=== PATIENT | male | born 1955 | race Caucasian/White ===

== ENCOUNTER 2018-03-30 08:15 | Inpatient (IN) | payer BC ==
[2018-03-30] MEDS ORDERED: Nitroglycerin 2% Ointment 1 INCH/1 GM Packet ONE ×2 (08:34→08:35)
[2018-03-30 08:39] LABS: #Lymphocytes 0.5 thou/uL (1.20-3.40); #Monocytes 0.5 thou/uL (0.11-0.59); #Neutrophils 12.8 thou/uL (1.40-6.50); %Basophils 0.1 % (0.0-1.0); %Lymphocytes 3.4 % (21.0-51.0); %Monocytes 3.5 % (0.0-10.0); %Neutrophils 92.9 % (42.0-75.0); Hemoglobin 14.3 g/dL (14.0-18.0); Mean Corpuscular HGB CONC 34.4 g/dL (32.0-36.0); Mean Corpuscular Hemoglobin 30.6 pg (27.0-31.0); Mean Corpuscular Volume 88.9 fL (78.0-98.0); Mean Platelet Volume 8.7 fL (7.4-10.4); Platelet Count 244 thou/uL (130-400); RBC Distribution Width 11.7 % (11.5-14.5); Red Blood Cell (RBC) Count 4.68 mill/uL (4.70-6.10); White Blood Cell (WBC) Count 13.8 thou/uL (4.8-10.8)
[2018-03-30 08:50] LABS: ALT (SGPT) 57 U/L (8-55); AST (SGOT) 37 U/L (5-34); Albumin 4.6 g/dL (3.4-4.8); Alkaline Phosphatase 104 U/L (40-150); Anion Gap 17 mmol/L (10-20); BUN (Urea Nitrogen) 21 mg/dL (8.4-25.7); Bilirubin, Total 0.6 mg/dL (0.2-1.2); Calc. Creatinine Clearance 0 mL/min (70-130); Calcium 10.3 mg/dL (7.8-10.44); Carbon Dioxide 20 mmol/L (23-31); Chloride 108 mmol/L (98-107); Estimated GFR-MDRD 61; Globulin 2.8 g/dL (2.4-3.5); Glucose 139 mg/dL (80-115); Lipase 28 U/L (8-78); Protein, Total 7.4 g/dL (5.8-8.1); Sodium 141 mmol/L (136-145)
[2018-03-30 08:53] LABS: CKMB 1.3 ng/mL (0-6.6); Troponin I 0.035 ng/mL (< 0.028)
--- NOTE | 2018-03-30 09:08 | RAD ---
PORTABLE CHEST 1 VIEW: DATE: 03/30/18. TIME: 8:50 p.m. HISTORY: Chest pain. FINDINGS: The heart size is normal. The lungs are expanded without lobar consolidation, pneumothoraces, or ple ural effusions. IMPRESSION: No radiographic evidence of acute cardiopulmonary process. POS: OFF
[2018-03-30] MEDS: Nitroglycerin 2% Ointment 1 INCH/1 GM Packet TOP SCH ×2 (12:50→17:52)
[2018-03-30] MEDS ORDERED: Communication Order-Pharmacy FS SCH (13:00)
[2018-03-30] MEDS ORDERED: Heparin 1000 UNIT/NS 500ML(OR) 500 ML ONE ×2 (13:08)
[2018-03-30] MEDS ORDERED: Verapamil 5 MG/2 ML VIAL ONE (13:20)
[2018-03-30] MEDS ORDERED: Heparin 10,000 UNITS/1 ML VIAL ONE (13:20)
[2018-03-30] MEDS ORDERED: Nitroglycerin 100MG/250ML BOT 250 ML ONE (13:20)
[2018-03-30] MEDS ORDERED: Iopamidol 370 76% 50 ML VIAL FS ONE (13:23)
[2018-03-30] MEDS ORDERED: Iopamidol 370 76% 100 ML VIAL ONE (13:23)
--- NOTE | 2018-03-30 13:31 | CON-2 ---
DATE OF CONSULTATION: 03/30/2018 CHIEF COMPLAINT: Chest pain. HISTORY OF PRESENT ILLNESS: A 62-year-old male presents after a 4-day history of intermittent chest pain. He reports that the chest pain has occurred when he was exerting himself and relieved with rest. This morning around 7 a.m., he got up and went to get his mail that is approximately 50 feet from his front door and the pain occurred at that time. He went to sit down in his house to have some of the pain alleviate; however, the pain did not and he went to the emergency room. Upon admission to the emergency room, he was given nitro and symptoms alleviated. Patient denies any shortness of breath, nausea, vomiting, diarrhea or diaphoresis during this time. The patient has no other complaints at this time. ALLERGIES: PENICILLIN. MEDICATIONS: Atorvastatin 20 mg, Wellbutrin 150 mg b.i.d., allopurinol 300 mg, losartan/hydrochlorothiazide 100 mg/25 mg, omeprazole 40 mg, fish oil 1000 mg daily, Zyrtec 10 mg p.r.n., Claritin 10 mg p.r.n. PAST MEDICAL HISTORY: Hypertension, hyperlipidemia, gout and chronic sinusitis. PAST SURGICAL HISTORY: Sinus surgeries x2, cataract surgery, orthopedic surgery to his right knee. SOCIAL HISTORY: The patient drinks socially with liquor vodka of choice 2-3 times a week. He denies any drug use. He denies any smoking history. REVIEW OF SYSTEMS: A 12 point review of systems was completed and was otherwise negative unless stated above in the HPI. PHYSICAL EXAMINATION: CONSTITUTIONAL: The patient is a male, appropriate for age, in no acute distress. VITAL SIGNS: BP 123/81, pulse 96, respirations are 19, temperature is 97.8, oxygen saturation 96% on room air. HEAD: Atraumatic, normocephalic. HEENT: Trachea is midline. NECK: No JVD present. LUNGS: Clear to auscultation bilaterally. No wheezing. CARDIOVASCULAR: Regular rate and rhythm. No murmurs. ABDOMEN: Soft, nontender, nondistended. EXTREMITIES: No cyanosis or edema. Peripheral pulses are equal and full bilaterally. NEUROLOGIC: GCS is 15. No focal neurologic deficits. LABORATORY DATA: white blood cell count of 13.8, hemoglobin of 14.3, hematocrit 41.6, platelet count of 244, D-dimer of less than 0.27 and sodium 141 , potassium 4.0, chloride 108, carbon dioxide 20, BUN 21, creatinine 1.20, glucose 139, AST was 37, ALT 57. Troponin I of 0.035 with CK-MB of 1.3. EKG showed normal sinus rhythm, rate of 100, normal axis, no ST segment changes , no T-wave changes. RADIOGRAPHIC EVIDENCE: Chest x-ray showed no radiographic evidence of acute cardiopulmonary process. ASSESSMENT AND PLAN: 1. Unstable angina. We will opt for an urgent cardiac catheterization to evaluate the coronary arteries. Risks and benefits of the procedure were discussed with the patient fully. 2. Elevated troponin. Same as above. 3. Hypertension. We will continue his home medications and monitor for proper better blood pressure control with increase in regimen as needed. 4. Hyperlipidemia. We will continue atorvastatin going forward with a possible increase in medication. Last lipid panel was done in October 2017 and showed to be under good control. 5. Leukocytosis, likely secondary to above versus his recent sinus infection. We will monitor that with CBC and defer treatment to the primary team. 6. Hyperglycemia, patient has had elevated blood glucose levels from as far back as 2012. No self reported history of DM. Will defer treatment to primary team, but may need to initiate DM management. DISPOSITION: Stable. We will await results of the cardiac catheterization and make treatment changes as appropriate once those results are known. This patient was seen and evaluated with Dr. Yovany Villegas, Cardiology attending, who is in agreement with our plan. [facility]
[2018-03-30 13:33] LABS: Troponin I 0.028 ng/mL (< 0.028)
[2018-03-30 13:52] VITALS: BMI 27.0
--- NOTE | 2018-03-30 14:11 | HP ---
HISTORY OF PRESENT ILLNESS: This is a 62-year-old white male with history of hypertension, hyperlipi demia, who presents to the ER with chest pain. The patient states that he has had occasional bouts o f chest pain. However, over the past 3 days the chest pain has become worse. His chest pain is most ly associated with exertion. This morning he was walking to the mailbox, a very short distance and d eveloped acute onset of chest pain radiating down both arms. There was no associated nausea, vomitin g or diaphoresis. His blood pressure was also noted to be about 175/95. He was seen in the ER and n itroglycerin was given as well as aspirin with immediate relief of his chest pain. His EKG, chest x- ray and a D-dimer were unremarkable, but his troponin level was indeterminate. PAST MEDICAL HISTORY: Hypertension, hyperlipidemia, gout, reflux, migraines. ALLERGIES: Chronic sinusitis. PAST SURGICAL HISTORY: Include T&A, vasectomy, nasal polyps, sinus surgery, eye surgery, right hand surgery, colonoscopy. FAMILY HISTORY: Father with heart disease and lung cancer, mother with arthritis. Daugh ter with bipolar disorder. Father with depression. Maternal grandmother with coronary artery diseas e. SOCIAL HISTORY: He is . He has 1 daughter who is a nationally ranked [employer] competitive [employer] shooter. The patient does not smoke, drinks occasional alcohol. REVIEW OF SYSTEMS: As above. ALLERGIES: PENICILLIN. MEDICATIONS: Lipitor 20 mg daily, losartan/HCTZ 100/25 q.a.m., allopurinol 300 daily, omeprazole 40 mg daily, Wellbutrin-SR 150 b.i.d. PHYSICAL EXAMINATION: VITAL SIGNS: Stable, afebrile. GENERAL: In no acute distress at this time. No chest pain. HEENT: Clear. HEART: Regular rate and rhythm. LUNGS: Clear. ABDOMEN: Soft. EXTREMITIES: No cyanosis, edema. LABORATORY: White count 13.8, H&H 14 and 41. Electrolytes normal. Creatinine 1.2, BUN 21, glucose 139. Liver functions slightly elevated, troponin I 0.035. ASSESSMENT: 1. Chest pain, rule out myocardial infarction with an indeterminate troponin level. The patient's h istory is suspicious for coronary artery disease. He has had a long history of hypertension, hyperli pidemia, controlled. 2. Hypertension. 3. Hyperlipidemia. PLAN: 1. Dr. Villegas is present. She plans to take the patient immediately to the [facility]. 2. We will continue to follow.
[2018-03-30] MEDS ORDERED: TICAGRELOR 90 MG TABLET ONE ×2 (14:17)
--- NOTE | 2018-03-30 14:51 | CON ---
DATE OF CONSULTATION: 03/30/2018 CARDIOLOGY CONSULTATION INDICATION FOR CONSULTATION: A 62-year-old patient with chest pain. HISTORY OF PRESENT ILLNESS: This is a very pleasant 62-year-old gentleman who has no previous cardiac history, but does have a history of hypertension and hyperlipidemia, and may be somewhat noncompliant with diet and paying attention to his cholesterol and hypertension. He has noted for the last couple weeks he started noticing chest pain, which he describes as being pressure, occasionally radiating to both arms. Now he has noticed this becoming more frequent and increased in intensity with minimal exertion. He was walking to his mailbox this morning and noticed that he developed severe discomfort and he went home and the pain did not resolve after he sat down and usually the last couple of times when this has been occurring, he can relax and the pain simply goes away. His EKG did not show any significant changes that would indicate ischemia; however, his cardiac enzymes did show a troponin I of 0.035. His renal function was normal. His hemoglobin was 14.3 and his creatinine is stable at 1.2. At this time, after discussion with the patient, I would label this as somewhat unstable angina in this gentleman who has otherwise been healthy and now has developed chest discomfort with minimal exertion. We will plan for a cardiac catheterization on this gentleman relatively urgently here to determine whether or not he has any significant disease prior to him having further elevation of the cardiac enzymes or further damage to the myocardium. There is no other indication in this patient that I can see that he would have elevated troponins. For the remainder of his past medical history, social history, family history and review of systems, please refer to the notes dictated by the Family Practice resident who has also seen the patient with me and we have discussed this case. PHYSICAL EXAMINATION: GENERAL: Reveals, well-developed, well-nourished gentleman in no acute distress. He is alert and oriented. VITAL SIGNS: Stable at this time. HEENT: Shows the head to be normocephalic and atraumatic. Carotid pulses are present. There were no bruits. CHEST: Clear to auscultation without rales, rhonchi or wheezing. CARDIOVASCULAR: Exam reveals a regular rate and rhythm. Normal S1, S2. There is no S3, S4. There were no significant murmurs, heaves, thrills, bruits or rubs. ABDOMEN: Soft and nontender with positive bowel sounds. No organomegaly or masses noted. Femoral pulses are present. EXTREMITIES: Show no clubbing, cyanosis or edema. Pedal pulses are present. NEUROLOGIC: The patient appears to be fully intact. SKIN: Warm and dry. IMPRESSION: 1. Unstable angina. I discussed the case with the resident as well as the primary care physician, his attending, which is Dr. Martinez and we will plan for cardiac catheterization as soon as the patient can be taken down to the cardiac quality control lab technician. This will give us a true diagnosis of whether or not he is having coronary artery disease or unstable anginal symptoms. If not, then he will need to be seen by the cylinder press feeder or increase his GI medications as there is always the possibility of esophageal spasms, but this would not account for the abnormal cardiac enzymes. 2. History of hypercholesterolemia. We will continue his statin medications. He will need to follow with his primary care physician to continue to monitor his cholesterol level. He has been on atorvastatin in the past for his home medication. 3. Hypertension. This will also need to be kept under observation and will need to be kept stable. Further recommendation will depend after we reviewed the cardiac catheterization and the films. I have explained the procedure and the risks to him to include bleeding, infection, possibility of myocardial infarction, cerebrovascular accident, renal insufficiency, allergic contrast reaction and the possibility of and he understands and agrees to proceed. We will plan for that within the next hour. ZOHAIB
[2018-03-30] MEDS ORDERED: Milk Of Magnesia 30 ML UDCUP PO PRN (15:51)
[2018-03-30] MEDS ORDERED: Nitroglycerin 0.4 MG TAB (25 Tab Bottle) SL PRN (15:51)
[2018-03-30] MEDS ORDERED: Acetaminophen/Codeine 30-300mg Tablet PO PRN (15:51)
[2018-03-30 18:43] LABS: Troponin I 0.047 ng/mL (< 0.028)
[2018-03-30] MEDS: TICAGRELOR 90 MG TABLET PO SCH (20:18)
[2018-03-30] MEDS: Carvedilol 3.125 MG TAB PO SCH (20:18)
[2018-03-30] MEDS ORDERED: Atorvastatin Calcium 20 MG TAB PO SCH (21:00)
[2018-03-31 03:53] VITALS: TEMP 98.4
[2018-03-31 06:00] LABS: ALT (SGPT) 41 U/L (8-55); AST (SGOT) 27 U/L (5-34); Albumin 3.9 g/dL (3.4-4.8); Alkaline Phosphatase 78 U/L (40-150); Anion Gap 16 mmol/L (10-20); BUN (Urea Nitrogen) 20 mg/dL (8.4-25.7); Bilirubin, Total 0.7 mg/dL (0.2-1.2); Calc. Creatinine Clearance 102 mL/min (70-130); Calcium 9.2 mg/dL (7.8-10.44); Carbon Dioxide 18 mmol/L (23-31); Chloride 109 mmol/L (98-107); Estimated GFR-MDRD 77; Globulin 2.6 g/dL (2.4-3.5); Glucose 109 mg/dL (80-115); Protein, Total 6.5 g/dL (5.8-8.1); Sodium 139 mmol/L (136-145)
[2018-03-31 06:30] LABS: #Lymphocytes 0.7 thou/uL (1.20-3.40); #Monocytes 0.6 thou/uL (0.11-0.59); #Neutrophils 7.6 thou/uL (1.40-6.50); %Basophils 0.3 % (0.0-1.0); %Eosinophils 0.4 % (0.0-10.0); %Lymphocytes 8.2 % (21.0-51.0); %Monocytes 6.5 % (0.0-10.0); %Neutrophils 84.6 % (42.0-75.0); Hemoglobin 12.8 g/dL (14.0-18.0); Mean Corpuscular HGB CONC 35.3 g/dL (32.0-36.0); Mean Corpuscular Hemoglobin 33.1 pg (27.0-31.0); Mean Corpuscular Volume 93.6 fL (78.0-98.0); Mean Platelet Volume 8.3 fL (7.4-10.4); Platelet Count 198 thou/uL (130-400); RBC Distribution Width 11.9 % (11.5-14.5); Red Blood Cell (RBC) Count 3.86 mill/uL (4.70-6.10)
[2018-03-31] MEDS ORDERED: Losartan/Hydrochlorothiazide 100 mg/25 mg Tablet PO SCH (09:00)
[2018-03-31] MEDS ORDERED: Allopurinol 300 MG TAB PO SCH (09:00)
[2018-03-31] MEDS: TICAGRELOR 90 MG TABLET PO SCH (09:01)
--- NOTE | 2018-03-31 09:37 | PDOC.CTH ---
<Adenike Dove - Last Filed: 03/31/18 09:34> Cardiology Progress Note - Subjective The pt seen and examined. No overnight events. No cardiac complaints. He has been up to bathroom several times already without any cardiac complaints. - Objective Vital Signs Temp Pulse Resp BP BP Pulse Ox 03/31/18 03:51 98.4 F 76 18 122/66 99 03/30/18 23:47 98.2 F 83 18 140/72 97 Admit Weight 205 lb 1 oz Weight 205 lb 6.4 oz 03/30/18 03/31/18 04/01/18 06:59 06:59 06:59 Intake Total 710 Balance 710 - Physical Examination General/Neuro: alert & oriented x3 Neck: no JVD present Lungs: CTA Heart: RRR Abdomen: soft Extremities: other: (No edema) - Telemetry Telemetry Rhythm: SR - Labs Result Diagrams: 03/31/18 04:29 03/31/18 04:29 Troponin/CKMB CK-MB (CK-2) 1.3 ng/mL (0-6.6) 03/30/18 08:26 Troponin I 0.047 ng/mL (< 0.028) H 03/30/18 18:10 - Assessment/Plan 1. CAD with s/p PCI with Drug eluting stent to Prox LAD and mild stenosis in prox Lt Cx on 03/30/18 - stable. On Coreg 3.125mg BID, Brilinta 90mg BID, ASA 81mg qd, Losartan HCTZ, and Lipitor. Plan to have another Trop level checked by Dr Martinez? 2. HTN - stable with current meds 3. Hyperlipidemia - on Statin 4. Gout - stable MAR reviewed * From Cardiac standpoint, the pt is stable to d/c home. The pt will f/u with Dr Villegas' office within 4 wks. The pt will have Trop check by Dr Martinez? Review of Systems - Review of Systems Constitutional: reports: no symptoms reported EENTM: reports: no symptoms reported Respiratory: reports: no symptoms reported Cardiac (ROS): reports: no symptoms reported ABD/GI: reports: no symptoms reported : reports: no symptoms reported Musculoskeletal: reports: no symptoms reported Skin: reports: no symptoms reported Neurological: reports: no symptoms reported Endocrine: reports: no symptoms reported <Danielle Villegas - Last Filed: 03/31/18 13:52> Cardiology Progress Note - Objective Vital Signs Temp Pulse Resp BP BP Pulse Ox 03/31/18 08:08 97.8 F 68 16 139/86 96 03/31/18 03:51 98.4 F 76 18 122/66 99 Admit Weight 205 lb 1 oz Weight 205 lb 6.4 oz 03/30/18 03/31/18 04/01/18 06:59 06:59 06:59 Intake Total 710 Balance 710 - Labs Result Diagrams: 03/31/18 04:29 03/31/18 04:29 Troponin/CKMB CK-MB (CK-2) 1.3 ng/mL (0-6.6) 03/30/18 08:26 Troponin I 0.047 ng/mL (< 0.028) H 03/30/18 18:10 - Assessment/Plan Pt. seen and eval. doing well. No chest pain. I agree with the A/P by the JUNIOR DATA ANALYST. He can f/u with me in the office in a month.
[2018-03-31] MEDS: Carvedilol 3.125 MG TAB PO SCH (09:42)
[2018-03-31 10:18] VITALS: BP 139/86
--- NOTE | 2018-03-31 10:24 | DIS ---
DATE OF DISCHARGE: 03/31/2018 DISCHARGE DIAGNOSES: 1. Coronary artery disease, 99% lesion of the proximal left anterior descending. 2. Chest pain. 3. Ejection fraction 70%. 4. Hypertension. 5. Hyperlipidemia. DISCHARGE MEDICATIONS: Bupropion 150 one p.o. b.i.d., Lipitor 20 mg daily, Brilinta 90 p.o. b.i.d., losartan 100/25 mg daily, Coreg 3.125 p.o. b.i.d., aspirin 81 mg daily, allopurinol 300 p.o. daily. BRIEF HISTORY: This is a 62-year-old white male, who presents with a 3-4-day history of intermittent worsening substernal chest pain, radiating down both upper extremities. The morning of admission, t he patient was walking a short distance to the mailbox and had sudden onset of chest pain. He took a rest and his chest pain resolved. He then presented to the emergency room where he was given nitrog lycerin and he had immediate relief. He took aspirin that morning also. Dr. Villegas was consulted. His troponin level was 0.035, 0.028, 0.030, and 0.047. CBC and CMP were bot h unremarkable. The patient has somewhat history of noncompliance with diet and medications. He now understands the importance of aggressive treatment. Our goal will most likely be an LDL less than 7 0. His Lipitor will definitely probably had to be titrated upward. The patient underwent cardiac ca theterization and a 99% lesion of the proximal LAD was noted with ejection fraction of 70%. A stent was placed. The patient was started on Brilinta. He has been chest pain free. He most likely will go home today and follow up in the office in 1 week with myself and with Dr. Villegas.
--- NOTE | 2018-03-31 12:15 | EKG ---
Test Reason : Blood Pressure : / mmHG Vent. Rate : 090 BPM Atrial Rate : 090 BPM P-R Int : 168 ms QRS Dur : 094 ms QT Int : 388 ms P-R-T Axes : 049 028 028 degrees QTc Int : 474 ms Normal sinus rhythm Normal ECG No previous ECGs available Confirmed by REN MIRANDA ([id number]) on 03/31/2018 12:15:05 PM Referred By: JENNIFER Confirmed By:REN MIRANDA
--- NOTE | 2018-03-31 12:17 | EKG ---
Test Reason : Blood Pressure : / mmHG Vent. Rate : 072 BPM Atrial Rate : 072 BPM P-R Int : 172 ms QRS Dur : 094 ms QT Int : 396 ms P-R-T Axes : 056 035 042 degrees QTc Int : 433 ms Normal sinus rhythm Normal ECG No previous ECGs available Confirmed by REN MIRANDA ([id number]) on 03/31/2018 12:17:33 PM Referred By: KENNY Confirmed By:REN MIRANDA
== END 2018-03-31 12:23 | disposition home or self-care (01) | DRG 247 ==
LOC: SCSER 08:15 → OBSVTOIN 09:38 → 2NO 09:38
PROVIDERS: ADMIT Family Medicine; ATTEND Family Medicine
PROC: 4A023N7 Measurement of Cardiac Sampling and Pressure, Left Heart, Percutaneous Approach (ICD-10-PCS; principal; 2018-03-30)
PROC: 027034Z Dilation of Coronary Artery, One Artery with Drug-eluting Intraluminal Device, Percutaneous Approach (ICD-10-PCS; 2018-03-30)
PROC: B2111ZZ Fluoroscopy of Multiple Coronary Arteries using Low Osmolar Contrast (ICD-10-PCS; 2018-03-30)
PROC: B2151ZZ Fluoroscopy of Left Heart using Low Osmolar Contrast (ICD-10-PCS; 2018-03-30)
DX: I25.110 Atherosclerotic heart disease of native coronary artery with unstable angina pectoris (principal); I10 Essential (primary) hypertension; E78.5 Hyperlipidemia, unspecified; K21.9 Gastro-esophageal reflux disease without esophagitis; Z88.0 Allergy status to penicillin; J32.8 Other chronic sinusitis; E78.00 Pure hypercholesterolemia, unspecified; R73.9 Hyperglycemia, unspecified; Z79.82 Long term (current) use of aspirin; Z79.01 Long term (current) use of anticoagulants; M10.9 Gout, unspecified
CPT/HCPCS: 36415; 71045; 80053; 82553; 83690; 84484; 85025; 85379; 92928; 93005; 93010; 93458; 94760; C1769; C1874; C1887; C9600; J1644; J2270

== ENCOUNTER 2019-05-10 10:37 | Outpatient (CLI) | payer BC ==
--- NOTE | 2019-05-10 13:08 | MRI ---
MRI CERVICAL SPINE WITHOUT CONTRAST: INDICATION: Cervical radiculopathy. COMPARISON: Comparison is made to MRI of cervical spine from 12/28/2017. FINDINGS: Vertebral bodies maintain normal height and alignment. Disk spaces are preserved. Vertebral body si gnal is normal. Minimal disk bulge and spondylosis at C2-3 and C3-4. Anterior subarachnoid space is preserved at these levels. No central canal or foraminal stenosis. At C4-5, broad-based disk bulge and spondylosis flattens the thecal sac and effaces the anterior suba rachnoid space. No cord impingement. No definite foraminal stenosis. At C5-6, posterior disk bulge and spondylosis mildly efface the anterior subarachnoid space. No cord impingement. No central canal or foraminal stenosis. At C6-7, there is a focal foraminal disk protrusion to the right extending into the right foramina. This was described on the prior exam and does not appear significantly changed. This would displace t he exiting right C7 nerve root. Cervical cord signal is normal. No other findings or significant change. IMPRESSION: Right foraminal disk protrusion at C6-C7 is again noted. Not significantly changed from exam of 12/28. POS: [facility]
== END 2019-05-10 10:38 | disposition home or self-care (01) ==
LOC: TBSIIMAG 10:37
PROVIDERS: ATTEND Neurological Surgery
DX: M50.10 Cervical disc disorder with radiculopathy, unspecified cervical region (principal); M50.123 Cervical disc disorder at C6-C7 level with radiculopathy
CPT/HCPCS: 72141

== ENCOUNTER 2019-05-28 08:48 | Observation (INO) | payer BC ==
[2019-05-25 11:28] VITALS: BMI 27.0
[2019-05-28] MEDS ORDERED: Clindamycin/D5W 900 mg/50 ml Premix Bag ONE (09:39)
[2019-05-28 10:13] LABS: #Eosinphils 0.3 thou/uL (0.0-0.7); #Monocytes 0.4 thou/uL (0.11-0.59); #Neutrophils 2.6 thou/uL (1.40-6.50); %Basophils 0.3 % (0.0-1.0); %Lymphocytes 23.8 % (21.0-51.0); Hemoglobin 13.1 g/dL (14.0-18.0); Mean Corpuscular HGB CONC 33.2 g/dL (32.0-36.0); Mean Corpuscular Hemoglobin 31.6 pg (27.0-31.0); Mean Corpuscular Volume 95.4 fL (78.0-98.0); Mean Platelet Volume 7.6 fL (7.4-10.4); Platelet Count 206 thou/uL (130-400); RBC Distribution Width 12.5 % (11.5-14.5); Red Blood Cell (RBC) Count 4.14 mill/uL (4.70-6.10); White Blood Cell (WBC) Count 4.3 thou/uL (4.8-10.8)
[2019-05-28 10:25] LABS: Anion Gap 11 mmol/L (10-20); BUN (Urea Nitrogen) 19 mg/dL (8.4-25.7); Calc. Creatinine Clearance 82 mL/min (70-130); Calcium 9.9 mg/dL (7.8-10.44); Carbon Dioxide 25 mmol/L (23-31); Chloride 107 mmol/L (98-107); Estimated GFR-MDRD 61; Glucose 110 mg/dL (80-115); Potassium 4.2 mmol/L (3.5-5.1); Sodium 139 mmol/L (136-145)
[2019-05-28] MEDS ORDERED: Levofloxacin 500 mg/D5W 100 ml Premix Bag ONE (10:25)
[2019-05-28] MEDS ORDERED: Sodium Chloride 0.9% 10 ML ONE (10:47)
[2019-05-28] MEDS ORDERED: Fentanyl 100 MCG/2 ML VIAL ONE (11:34)
[2019-05-28] MEDS ORDERED: HYDROcodone/Acetaminophen 5/325 mg Tablet ONE ×2 (14:40→21:39)
[2019-05-28] MEDS ORDERED: PROPOFOL 200 MG/20 ML VIAL ONE (15:45)
[2019-05-28] MEDS ORDERED: Rocuronium Bromide 10 MG/ML (10ML VIAL) ONE (15:45)
[2019-05-28] MEDS ORDERED: Lidocaine 1% PF 5 ML VIAL ONE (15:45)
[2019-05-28] MEDS ORDERED: Glycopyrrolate 0.2 MG/ML 5 ML SYRINGE ONE (15:45)
[2019-05-28] MEDS ORDERED: Dexamethasone 20 MG/5 ML VIAL ONE (15:45)
[2019-05-28] MEDS ORDERED: PHENYLEPHRINE-NS 100 MCG/ML 10 ML SYRINGE ONE (15:45)
[2019-05-28] MEDS ORDERED: Ondansetron PF 4 MG/2 ML Vial ONE (15:45)
[2019-05-28] MEDS ORDERED: Tamsulosin HCl 0.4 MG CAP ONE (17:12)
--- NOTE | 2019-05-28 18:10 | OP ---
DATE OF PROCEDURE: 05/28/2019 EMERGENCY DEPARTMENT RN: Gregg Muhammad PA-C PROCEDURES PERFORMED: Anterior cervical diskectomy C6-C7, interbody arthrodesis, intervertebral biomechanical device, local morselized autograft, demineralized bone matrix, anterior titanium instrumentation C6-C7. DESCRIPTION OF PROCEDURE: The patient was brought to the operating room and intubated. He was positioned supine with head in modest extension on gel-filled donut. Incision was made in the right precervical area and dissected medial to the sternocleidomastoid muscle, identified the anterior cervical spinal, and the level was confirmed by x-ray. We placed distraction across C6-C7. Using the operating microscope and microdissection techniques, we completely removed the intervertebral disk and decompressing the spinal cord and right C7 nerve root. The bony endplates were then decorticated for the purpose of arthrodesis and appropriate-sized intervertebral biomechanical PEEK device was brought into the field, filled with demineralized bone matrix and local morselized autograft, and tapped in place securely at C6-C7. Next, an anterior plate was brought into the field and secured to C6 and C7 using two 14-mm screws at each level. The wound was then extensively irrigated. MAC hemostasis was secured, and the wound was closed in anatomic layers. Job ID: [id number]
[2019-05-28] MEDS ORDERED: tiZANidine HCl 4 MG TAB ONE (18:46)
[2019-05-28] MEDS ORDERED: Morphine 2 MG/ML SYRINGE SLOW IVP PRN (23:20)
[2019-05-28] MEDS ORDERED: tiZANidine HCl 4 MG TAB PO PRN (23:20)
[2019-05-28] MEDS ORDERED: traMADol HCl 50 MG TAB PO PRN ×2 (23:20)
[2019-05-28] MEDS ORDERED: Ondansetron PF 4 MG/2 ML Vial IVP PRN (23:20)
[2019-05-28] MEDS ORDERED: Milk Of Magnesia 30 ML UDCUP PO PRN (23:20)
[2019-05-28] MEDS ORDERED: HYDROcodone/Acetaminophen 10/325 mg Tablet PO PRN ×2 (23:20)
[2019-05-28] MEDS ORDERED: diphenhydrAMINE 50 MG/ML VIAL IVP PRN (23:20)
[2019-05-28] MEDS ORDERED: diphenhydrAMINE 25 MG CAP PO PRN (23:20)
[2019-05-28] MEDS ORDERED: Mag-Al 1200 mg/1200 mg/30 ML UDCUP PO PRN (23:20)
[2019-05-28] MEDS: Sodium Chloride 0.9% 1,000 ML IV SCH (23:42)
[2019-05-29] MEDS: Sodium Chloride 0.9% 1,000 ML IV SCH (05:52)
[2019-05-29] MEDS ORDERED: Tamsulosin HCl 0.4 MG CAP PO SCH ×2 (06:00→09:00)
[2019-05-29 06:03] VITALS: TEMP 97.9
[2019-05-29 08:43] VITALS: BP 140/71
[2019-05-29] MEDS ORDERED: Allopurinol 300 MG TAB PO SCH (09:00)
[2019-05-29] MEDS ORDERED: Carvedilol 3.125 MG TAB PO SCH (09:00)
[2019-05-29] MEDS ORDERED: Losartan/Hydrochlorothiazide 100 mg/25 mg Tablet PO SCH (09:00)
[2019-05-29] MEDS ORDERED: Bupropion 150 MG SR TAB PO SCH (09:00)
--- NOTE | 2019-05-29 16:30 | DIS ---
DATE OF ADMISSION: 05/28/2019 DATE OF DISCHARGE: 05/29/2019 The patient is a 63-year-old male, recently seen in our office for right-sided cervical radiculopathy, who underwent C6 through C7 ACDF on 05/28/2019. Following the surgery, he was transitioned to Day Stay, where his pain was well controlled with p.o. medications, he was tolerating a regular diet, however, he had significant issues with urinary retention requiring I and O cath and was therefore transitioned for observation admission. He was monitored overnight and had improvement in his urination and is now urinating without difficulty. His strength is otherwise 5/5 throughout and he is walking in the halls without difficulty. He reports resolution of his right-sided cervical radiculopathy. We will plan to dismiss the patient to home. I have discussed home care and precautions and we will follow up with the patient in 2 weeks in the office. Job ID: [id number]
[2019-05-29] MEDS ORDERED: Atorvastatin Calcium 20 MG TAB PO SCH (21:00)
[2019-06-11] MEDS ORDERED: Aspirin 81 mg Enteric Coated Tablet PO SCH (09:00)
== END 2019-05-29 11:21 | disposition home or self-care (01) ==
LOC: SDC 08:48 → SURG A 19:51
PROVIDERS: ADMIT Neurological Surgery; ATTEND Neurological Surgery
PROC: 0RG10A0 Fusion of Cervical Vertebral Joint with Interbody Fusion Device, Anterior Approach, Anterior Column, Open Approach (ICD-10-PCS; principal; 2019-05-28)
PROC: 0RT30ZZ Resection of Cervical Vertebral Disc, Open Approach (ICD-10-PCS; 2019-05-28)
DX: M50.123 Cervical disc disorder at C6-C7 level with radiculopathy (principal); M48.02 Spinal stenosis, cervical region; R33.9 Retention of urine, unspecified; I25.10 Atherosclerotic heart disease of native coronary artery without angina pectoris; I10 Essential (primary) hypertension; E78.5 Hyperlipidemia, unspecified; M10.9 Gout, unspecified; K21.9 Gastro-esophageal reflux disease without esophagitis; G43.909 Migraine, unspecified, not intractable, without status migrainosus; Z79.02 Long term (current) use of antithrombotics/antiplatelets; Z79.899 Other long term (current) drug therapy; Z88.0 Allergy status to penicillin; Z95.5 Presence of coronary angioplasty implant and graft
CPT/HCPCS: 36415; 76000; 80048; 85025; C1713; C1776; G0378; J1100; J1956; J2001; J2405; J2704; J3010; J3490

== ENCOUNTER 2019-06-12 15:27 | Outpatient (CLI) | payer BC ==
--- NOTE | 2019-06-12 16:04 | RAD ---
EXAM: XR Cerv Sp Ap Lat STANDARD PROVIDED CLINICAL HISTORY: Follow-up postsurgical changes of the cervical spine. COMPARISON: None FINDINGS: Postsurgical changes related to anterior cervical fusion at the C6-7 level are noted with anterior pl ate and screws transfixing this level. Intradiscal prosthesis is seen at this level. No hardware complication is evident. No fracture or subluxation is seen. There are scattered facet degenerative c hanges noted. The vertebral body heights and remaining intervertebral disc spaces are within normal limits. Prevertebral soft tissues are within normal limits. Vascular calcifications overlie the neck bilaterally. IMPRESSION: Postsurgical changes related to anterior cervical fusion at the C6-7 level. No hardware complication is seen.
== END 2019-06-12 15:28 | disposition home or self-care (01) ==
LOC: TBSIIMAG 15:27
PROVIDERS: ATTEND Neurological Surgery
DX: M54.12 Radiculopathy, cervical region (principal); Z98.1 Arthrodesis status
CPT/HCPCS: 72040

== ENCOUNTER 2019-07-18 15:26 | Outpatient (CLI) | payer BC ==
--- NOTE | 2019-07-18 16:23 | RAD ---
XR Cerv Sp Ap Lat STANDARD History: Cervical pain Comparison: Radiograph June 2019 Findings: Moderate vascular plaque both carotid bulbs and proximal internal carotid arteries. Similar appearance ACDF hardware at C6/C7 without evidence for hardware complication. The visualized upper ribs are intact. Low-grade narrowing of the disc spaces from C3-C6. No significant listhesis. Impression: Unchanged examination. No acute osseous abnormality.
== END 2019-07-18 15:27 | disposition home or self-care (01) ==
LOC: BICRAD 15:26
PROVIDERS: ATTEND Neurological Surgery
DX: M54.2 Cervicalgia (principal)
CPT/HCPCS: 72040

== ENCOUNTER 2019-12-07 06:56 | Outpatient (CLI) | payer BC, OTHER ==
[2019-12-07 12:23] LABS: #Eosinphils 0.3 thou/uL (0.0-0.7); #Lymphocytes 1.1 thou/uL (1.20-3.40); #Monocytes 0.4 thou/uL (0.11-0.59); #Neutrophils 3.2 thou/uL (1.40-6.50); %Basophils 0.4 % (0.0-1.0); %Eosinophils 6.9 % (0.0-10.0); %Lymphocytes 21.4 % (21.0-51.0); %Monocytes 7.9 % (0.0-10.0); %Neutrophils 63.3 % (42.0-75.0); Hemoglobin 13.8 g/dL (14.0-18.0); Mean Corpuscular HGB CONC 33.1 g/dL (32.0-36.0); Mean Corpuscular Hemoglobin 31.6 pg (27.0-31.0); Mean Corpuscular Volume 95.3 fL (78.0-98.0); Platelet Count 263 thou/uL (130-400); RBC Distribution Width 12.8 % (11.5-14.5); Red Blood Cell (RBC) Count 4.36 mill/uL (4.70-6.10)
[2019-12-07 12:39] LABS: Anion Gap 14 mmol/L (10-20); BUN (Urea Nitrogen) 19 mg/dL (8.4-25.7); Calc. Creatinine Clearance 0 mL/min (70-130); Calcium 10.3 mg/dL (7.8-10.44); Carbon Dioxide 30 mmol/L (23-31); Chloride 104 mmol/L (98-107); Estimated GFR-MDRD 61; Glucose 93 mg/dL (80-115); Sodium 144 mmol/L (136-145)
[2019-12-07 13:04] LABS: Bilirubin Negative (Negative); Blood, Urine Negative (Negative); Glucose, Urine (Dipstick) Negative (Negative); Leukocyte Negative (Negative); Nitrite Negative (Negative); Protein, Urine (Dipstick) Negative (Neg-Trace); Urobilinogen 0.2 mg/dL (Less than 2)
[2019-12-07 13:07] LABS: Clarity Clear (Clear)
[2019-12-07 13:11] LABS: Bacteria/HPF None Seen HPF (None Seen); RBC/HPF 0-3 HPF (0-3); Squamous Epithelial None Seen HPF (0-3); WBC/HPF None Seen HPF (0-3)
[2019-12-07 18:22] LABS: SARS-CoV-2 MS2 Positive; SARS-CoV-2 N Gene Negative; SARS-CoV-2 S Gene Negative; SARS-CoV-2 orf1ab Negative
--- NOTE | 2019-12-09 16:36 | EKG ---
Test Reason : PREOP Blood Pressure : / mmHG Vent. Rate : 072 BPM Atrial Rate : 072 BPM P-R Int : 172 ms QRS Dur : 092 ms QT Int : 392 ms P-R-T Axes : 045 025 030 degrees QTc Int : 429 ms Normal sinus rhythm Normal ECG When compared with ECG of 31-MAR-2018 07:16, No significant change was found Confirmed by FOX DOTSON (2) on 12/09/2019 4:36:31 PM Referred By: DEENA Confirmed By:FOX DOTSON
== END 2019-12-07 06:57 | disposition home or self-care (01) ==
LOC: LABBT 06:56
PROVIDERS: ATTEND Orthopaedic Surgery Hand Surgery
DX: Z01.818 Encounter for other preprocedural examination (principal); Z11.59 Encounter for screening for other viral diseases; G56.22 Lesion of ulnar nerve, left upper limb; M72.0 Palmar fascial fibromatosis [Dupuytren]
CPT/HCPCS: 80048; 81001; 85025; 87635; 93005; 93010; U0003

== ENCOUNTER 2019-12-11 05:53 | Day surgery (SDC) | payer BC ==
[2019-12-07 11:23] VITALS: BMI 27.0
[2019-12-11] MEDS ORDERED: Bacitracin Zinc Ointment 30 gm TUBE ONE (06:14)
[2019-12-11] MEDS ORDERED: Bupivacaine PF 0.5% 30 ML VIAL ONE (06:14)
[2019-12-11] MEDS ORDERED: Betamet Acet/Betamet Na Ph 30 MG/5 ML VIAL ONE ×2 (06:39→09:50)
[2019-12-11] MEDS ORDERED: HYDROmorphone 0.5 MG/0.5 ML SYRINGE ONE (06:51)
[2019-12-11] MEDS ORDERED: Fentanyl 100 MCG/2 ML VIAL ONE (06:51)
[2019-12-11] MEDS ORDERED: Vancomycin 1 GM/200 ML BAG ONE (07:03)
[2019-12-11] MEDS ORDERED: Lidocaine 1% PF 5 ML VIAL ONE (11:04)
[2019-12-11] MEDS ORDERED: Dexamethasone 20 MG/5 ML VIAL ONE (11:04)
[2019-12-11] MEDS ORDERED: PROPOFOL 200 MG/20 ML VIAL ONE (11:04)
[2019-12-11] MEDS ORDERED: Ketorolac Tromethamine 30 MG/ML VIAL ONE ×2 (11:04)
[2019-12-11] MEDS ORDERED: Ondansetron PF 4 MG/2 ML Vial ONE (11:04)
--- NOTE | 2019-12-11 14:08 | OP ---
DATE OF PROCEDURE: 12/11/2019 PREOPERATIVE DIAGNOSIS: 1. Left small finger Dupuytren's cord, severe, going from the transverse carpal ligament all the way to the base of the distal phalanx. 2. Left cubital tunnel with severe compression in 2 sites. 3. Olecranon bursa inflammation. POSTOPERATIVE DIAGNOSES: 1. Very thick olecranon bursa. 2. Very tight compression of the ulnar nerve just proximal to the elbow where across the intermuscular septum and in the main cubital tunnel. 3. Left Dupuytren's cord at 4 mm thick in some spots transverse carpal ligament distal edge all the way to the ulnar aspect of the A4 glenda, acting on all 3 joints. PROCEDURE PERFORMED: 1. Digital nerve neuroplasty, ulnar and radial digital nerve, left small finger. 2. Left small finger subpalmar subtotal fasciectomy with Dupuytren's cord excision. 3. Left cubital tunnel release/ulnar nerve neuroplasty at the elbow. 4. Submuscular transposition, ulnar nerve. 5. Left radical olecranon bursectomy. 6. Application of long-arm splint including the digit and the elbow. TOURNIQUET TIME: 90 minutes at 250 mmHg, then deflated for 28 minutes and reinflated for 51 minutes. BLOOD LOSS: Approximately 10 mL. SPECIMENS SENT: Yes, the very dense cord consistent with Dupuytren's contracture and olecranon bursa. DESCRIPTION OF PROCEDURE: After successful general endotracheal anesthesia, the limb was prepped and draped. A block was given preoperatively, and thus, we outlined 2 incision, a zigzag Alicia incision from the DIP joint to the tranverse carpal ligament and we outlined the olecranon incision midline, slightly medialized at the olecranon tip to avoid being on the tip and centered on the olecranon tip. We then injected 20 mL at the proximal incision and 10 mL of 0.5% Marcaine in the distal incision. We exsanguinated the limb, inflated tourniquet to 250 mmHg pressure and then began at the palmar fascia. We exposed the entire palmar fascia using a combination of 11 blade knife, Oldham blade knife, tenotomy scissors. Once we exposed the entire Dupuytren's cord, then we began proximally, identified the ulnar digital nerve all the way from the transverse carpal ligament all the way to the where across over the last 6 mm as the cord became eccentric at the level of the A2 glenda and inserted into the skin and dermis ulnarly. We then followed the radial neurovascular bundle in the same fashion for as far proximal as possible, releasing it until we performed a neuroplasty on both sides and protected neurovascular bundle. We then began on the ulnar side by removing the portion of the cord distal to where the neurovascular bundle crossed superficial to it, until we could slide this under a neurovascular bundle and protected it. This was done. We then released it completely from the A2 glenda, from the sheath itself. We made sure that the radial neurovascular bundle was completely freed at the level of the A2 glenda. Once this was done, we lifted up the mass en bloc. Then, we released it at its transverse carpal ligament edge origin. We placed 3 mL of Celestone along the nerve in the area where there was removed. We released the tourniquet and had hemostasis and we had excellent pink finger with 1-second refill. We obtained hemostasis, closed the incision with interrupted 4-0 nylon and placed a sterile dressing on it to include bacitracin, Adaptic, 4x4, and Kerlix. We now had tourniquet time down 28 minutes and then we were able to re-exsanguinate the limb, inflated the tourniquet to 250 mmHg pressure, began with the olecranon center incision down the midline. We carried the incision through skin and subcutaneous tissue. Then, once it was completely exposed, we created a large flap medially and laterally with dermis, epidermis, and cutaneous nerves involved. We then found the ulnar nerve very proximal in the field and began to release completely with complete neuroplasty. This included releasing the cubital tunnel itself and the fascia between the two heads of the flexor group. Once this was done, the nerve was completely freed. We then dissected along with a vascular bundle. The nerve free enough to be transposed 3 cm anteriorly at the level of the medial epicondyle with the elbow flexed and with the elbow extended 2.5 cm. This included the area of flattening underneath the levelock cubital tunnel and just proximal to interosseous membrane crossed it. Once we had freed the nerve enough to be transposed, we released the interosseous membrane off the medial epicondyle as far proximal as 9 cm. This was discarded. We then made a Z-shaped lengthening of the flexor pronator area with the most proximal end of that being the deep and around the flexor carpi ulnaris heads. Then, we transposed the nerve without undue pressure in 45 degrees of flexion, sutured with a #1 Ethibond, the lengthened edges in a [id number] x5, and then we saw it was a stable nerve transposition without snapping or undue pressure. We released the tourniquet, obtained hemostasis. We then evaluated the distal wound, closed this over the finger with interrupted 4-0 nylon and we then saw that the olecranon bursa was very thick, did a radical olecranon bursectomy, sent as a specimen. We found hemostasis, placed Celestone over the nerve, and then closed the olecranon approach wound in the midline with a running 3-0 Monocryl subcutaneous, deep dermis and epidermis with interrupted 4-0 nylon in simple mattress pattern. This was interrupted. Local had been given. We placed bacitracin, Adaptic, 4x4, Kerlix, and an ABD on this proximal wound, and with the elbow at -30 degrees extension, we placed a long-arm splint, which included neutral extension of interphalangeal joint of the small finger. The patient left the operating room without evidence of anesthetic or operative complication with a long-arm splint and pink digits. Job ID: [id number]
== END 2019-12-11 13:45 | disposition home or self-care (01) ==
LOC: SDC 05:53
PROVIDERS: ATTEND Orthopaedic Surgery Hand Surgery
PROC: 0JNK0ZZ Release Left Hand Subcutaneous Tissue and Fascia, Open Approach (ICD-10-PCS; principal; 2019-12-11)
PROC: 0MB40ZZ Excision of Left Elbow Bursa and Ligament, Open Approach (ICD-10-PCS; principal; 2019-12-11)
PROC: 0LN80ZZ Release Left Hand Tendon, Open Approach (ICD-10-PCS; principal; 2019-12-11)
PROC: 01Q60ZZ Repair Radial Nerve, Open Approach (ICD-10-PCS; principal; 2019-12-11)
PROC: 01Q40ZZ Repair Ulnar Nerve, Open Approach (ICD-10-PCS; principal; 2019-12-11)
DX: M72.0 Palmar fascial fibromatosis [Dupuytren] (principal); G56.22 Lesion of ulnar nerve, left upper limb; I10 Essential (primary) hypertension; E78.5 Hyperlipidemia, unspecified; K21.9 Gastro-esophageal reflux disease without esophagitis; Z79.899 Other long term (current) drug therapy; Z88.0 Allergy status to penicillin; Z95.5 Presence of coronary angioplasty implant and graft
CPT/HCPCS: 88304; J0702; J1100; J1170; J1885; J2001; J2405; J2704; J3010; J3370; S0020

== ENCOUNTER 2020-10-16 14:11 | Outpatient (CLI) | payer BC | END 2020-10-16 14:12 | disposition home or self-care (01) | LOC: LABBT 14:11 | PROVIDERS: ATTEND Orthopaedic Surgery Hand Surgery | DX: Z01.818 Encounter for other preprocedural examination (principal); Z20.822 Contact with and (suspected) exposure to COVID-19; M72.0 Palmar fascial fibromatosis [Dupuytren] | CPT/HCPCS: 81001; 85025; 87635; 93005; 93010; U0003; U0005 ==

== ENCOUNTER 2020-10-21 05:55 | Day surgery (SDC) | payer BC ==
[2020-10-20 11:14] VITALS: BMI 27.7
[2020-10-21] MEDS ORDERED: Betamet Acet/Betamet Na Ph 30 MG/5 ML VIAL ONE (06:34)
[2020-10-21] MEDS ORDERED: Bupivacaine PF 0.5% 30 ML VIAL ONE (06:34)
[2020-10-21] MEDS ORDERED: Sodium Chloride 0.9% 10 ML ONE (06:35)
[2020-10-21] MEDS ORDERED: Bacitracin Zinc Ointment 30 gm TUBE ONE (06:35)
[2020-10-21] MEDS ORDERED: Fentanyl 100 MCG/2 ML VIAL ONE (06:54)
[2020-10-21] MEDS ORDERED: Ondansetron PF 4 MG/2 ML Vial ONE (07:24)
[2020-10-21] MEDS ORDERED: PHENYLEPHRINE-NS 100 MCG/ML 10 ML SYRINGE ONE (07:24)
[2020-10-21] MEDS ORDERED: PROPOFOL 200 MG/20 ML VIAL ONE (07:24)
[2020-10-21] MEDS ORDERED: Ketorolac Tromethamine 30 MG/ML VIAL ONE (07:24)
[2020-10-21] MEDS ORDERED: Dexamethasone 20 MG/5 ML VIAL ONE (07:24)
[2020-10-21] MEDS ORDERED: diphenhydrAMINE 50 MG/ML VIAL ONE (07:24)
[2020-10-21] MEDS ORDERED: Collagenase Clostridium Hist. 0.9 MG VIAL IJ SCH (07:30)
== END 2020-10-21 11:20 | disposition home or self-care (01) ==
LOC: SDC 05:55
PROVIDERS: ATTEND Orthopaedic Surgery Hand Surgery
PROC: 0LN70ZZ Release Right Hand Tendon, Open Approach (ICD-10-PCS; principal; 2020-10-21)
PROC: 0JNJ0ZZ Release Right Hand Subcutaneous Tissue and Fascia, Open Approach (ICD-10-PCS; principal; 2020-10-21)
PROC: 3E013TZ Introduction of Destructive Agent into Subcutaneous Tissue, Percutaneous Approach (ICD-10-PCS; principal; 2020-10-21)
DX: M72.0 Palmar fascial fibromatosis [Dupuytren] (principal); Z79.02 Long term (current) use of antithrombotics/antiplatelets; Z79.82 Long term (current) use of aspirin; Z79.899 Other long term (current) drug therapy; Z88.0 Allergy status to penicillin; Z95.5 Presence of coronary angioplasty implant and graft
CPT/HCPCS: 88304; J0690; J0702; J0775; J1100; J1200; J1885; J2405; J2704; J3010; J3490; S0020

== ENCOUNTER 2020-11-19 15:43 | Outpatient (CLI) | payer BC ==
[2020-11-19 17:02] LABS: Anion Gap 15 mmol/L (10-20); BUN (Urea Nitrogen) 16 mg/dL (8.4-25.7); Calc. Creatinine Clearance 0 mL/min (70-130); Calcium 9.9 mg/dL (7.8-10.44); Carbon Dioxide 24 mmol/L (23-31); Chloride 105 mmol/L (98-107); Glucose 118 mg/dL (80-115); Potassium 4.1 mmol/L (3.5-5.1); Sodium 140 mmol/L (136-145)
[2020-11-19 17:08] LABS: Hemoglobin 12.8 g/dL (13.5-17.5); Mean Corpuscular HGB CONC 33.3 g/dL (32.0-36.0); Mean Corpuscular Hemoglobin 31.1 pg (27.0-33.0); Mean Corpuscular Volume 93.4 fl (81.2-95.1); Platelet Count 240 10x3/uL (150-450); RBC Distribution Width 13.6 % (11.5-14.5); Red Blood Cell (RBC) Count 4.11 10x6/uL (4.32-5.72); White Blood Cell (WBC) Count 6.3 10x3/uL (3.5-10.5)
[2020-11-20 02:31] LABS: SARS-CoV-2 PCR by NAA Not Detected (NotDetected)
== END 2020-11-19 15:44 | disposition home or self-care (01) ==
LOC: LABBT 15:43
PROVIDERS: ATTEND Orthopaedic Surgery Hand Surgery
DX: Z01.812 Encounter for preprocedural laboratory examination (principal); M72.0 Palmar fascial fibromatosis [Dupuytren]; Z20.822 Contact with and (suspected) exposure to COVID-19
CPT/HCPCS: 80048; 85027; 87635; U0003; U0005

== ENCOUNTER 2020-11-21 06:36 | Day surgery (SDC) | payer BC ==
[2020-11-20 10:00] VITALS: BMI 27.7
[2020-11-21] MEDS ORDERED: Fentanyl 100 MCG/2 ML VIAL ONE (08:17)
[2020-11-21] MEDS ORDERED: Bupivacaine PF 0.5% 30 ML VIAL ONE (08:24)
[2020-11-21] MEDS ORDERED: Thrombin 5000 UNITS/5 ML VIAL ONE (08:24)
[2020-11-21] MEDS ORDERED: Mineral Oil Sterile 10ML 10 ML UDCUP ONE (08:24)
[2020-11-21] MEDS ORDERED: Bacitracin Zinc Ointment 30 gm TUBE ONE (08:24)
[2020-11-21] MEDS ORDERED: Lidocaine 1% PF 5 ML VIAL ONE (08:36)
[2020-11-21] MEDS ORDERED: PROPOFOL 200 MG/20 ML VIAL ONE (08:36)
[2020-11-21] MEDS ORDERED: Ondansetron PF 4 MG/2 ML Vial ONE (08:36)
[2020-11-21] MEDS ORDERED: Dexamethasone 20 MG/5 ML VIAL ONE (08:36)
[2020-11-21] MEDS ORDERED: Ketorolac Tromethamine 30 MG/ML VIAL ONE (08:36)
== END 2020-11-21 11:35 | disposition home or self-care (01) ==
LOC: SDC 06:36
PROVIDERS: ATTEND Orthopaedic Surgery Hand Surgery
PROC: 0HRFX73 Replacement of Right Hand Skin with Autologous Tissue Substitute, Full Thickness, External Approach (ICD-10-PCS; principal; 2020-11-21)
DX: T81.31XA Disruption of external operation (surgical) wound, not elsewhere classified, initial encounter (principal); I10 Essential (primary) hypertension; E78.5 Hyperlipidemia, unspecified; M10.9 Gout, unspecified; G43.909 Migraine, unspecified, not intractable, without status migrainosus; Z79.02 Long term (current) use of antithrombotics/antiplatelets; Z79.82 Long term (current) use of aspirin; Z79.899 Other long term (current) drug therapy; Z88.0 Allergy status to penicillin; Z95.5 Presence of coronary angioplasty implant and graft
CPT/HCPCS: J0690; J1100; J1885; J2405; J2704; J3010; J3490; S0020

== ENCOUNTER 2021-08-06 10:26 | Outpatient (CLI) | payer MEDICARE, BC | END 2021-08-06 10:27 | disposition home or self-care (01) | LOC: SCSRAD 10:26 | PROVIDERS: ATTEND Student in an Organized Health Care Education/Training Program | DX: R05.9 Cough, unspecified (principal) | CPT/HCPCS: 71046 ==

== ENCOUNTER 2024-06-11 15:11 | Outpatient (CLI) | payer MEDICARE, BC | END 2024-06-11 15:12 | disposition home or self-care (01) | LOC: SCSRAD 15:11 | PROVIDERS: ATTEND Preventive Medicine Addiction Medicine | DX: M43.16 Spondylolisthesis, lumbar region (principal); Z98.1 Arthrodesis status | CPT/HCPCS: 72100 ==

== ENCOUNTER 2024-07-03 14:28 | Outpatient (CLI) | payer MEDICARE, BC | END 2024-07-03 14:29 | disposition home or self-care (01) | LOC: SCSRAD 14:28 | PROVIDERS: ATTEND Preventive Medicine Addiction Medicine | DX: M43.16 Spondylolisthesis, lumbar region (principal) | CPT/HCPCS: 72100 ==